=== PATIENT | female | born 1950 | race Caucasian/White ===

== ENCOUNTER 2021-10-16 08:38 | Inpatient (IN) ==
[2021-10-16] MEDS ORDERED: Melatonin 3 MG TABLET PO PRN (11:00)
[2021-10-16] MEDS ORDERED: Naloxone 0.4 MG/ML INJ IVP PRN ×2 (11:00→15:41)
[2021-10-16] MEDS ORDERED: Ondansetron ODT 4 MG TAB.RAPDIS SL PRN (11:00)
[2021-10-16] MEDS ORDERED: *HR* HYDROmorphone PF 0.5 MG/0.5 ML SYRINGE IVP PRN (11:33)
[2021-10-16] MEDS ORDERED: Promethazine 6.25 MG in Water for inj. (sterile) 20 ML IVPB PRN (11:33)
[2021-10-16] MEDS ORDERED: Ondansetron 4 MG/2 ML VIAL IVP PRN (11:33)
[2021-10-16] MEDS ORDERED: Lidocaine -MPF 2% 5 ML VIAL ONE (11:36)
[2021-10-16] MEDS ORDERED: Lidocaine HCL 4 ML Topical Solution (Laryng-O-Jet Kit Sterile Pak) TP ONE (11:36)
[2021-10-16] MEDS ORDERED: Ondansetron 4 MG/2 ML VIAL ONE (11:36)
[2021-10-16] MEDS ORDERED: *HR* Succinylcholine 200 MG/10 ML VIAL IVP ONE (11:36)
[2021-10-16] MEDS ORDERED: *HR* FentaNYL (PF) 100 MCG/2 ML VIAL ONE (11:36)
[2021-10-16] MEDS ORDERED: *HR* Rocuronium Bromide 50 MG/5 ML VIAL ONE (11:36)
[2021-10-16] MEDS ORDERED: *HR* Propofol 200 MG/20 ML VIAL IVP ONE (11:36)
[2021-10-16] MEDS ORDERED: 0.9 % Sodium Chloride 1,000 ML IVC SCH (11:45)
[2021-10-16] MEDS ORDERED: *HR* Midazolam HCl 2 MG/2 ML VIAL ONE (12:42)
[2021-10-16] MEDS ORDERED: EPHEDrine 50 MG/ML VIAL ONE (12:58)
[2021-10-16] MEDS ORDERED: ceFAZolin 2,000 MG in Water for inj. (sterile) 20 ML IVP ONE (13:05)
[2021-10-16] MEDS ORDERED: CeFAZolin Syr 2,000MG/20 ML 2,000 MG/20 ML SYRINGE IVPB ONE (13:15)
[2021-10-16] MEDS ORDERED: carvediloL 6.25 MG TABLET PO ONE (13:54)
[2021-10-16] MEDS ORDERED: Pantoprazole 40 MG VIAL IVP ONE (13:56)
[2021-10-16] MEDS ORDERED: Ipratropium/Albuterol Neb 3 ML IH SCH (13:57)
[2021-10-16] MEDS: Ipratropium/Albuterol Neb 3 ML IH SCH ×3 (16:40→23:36)
[2021-10-16] MEDS: 0.9 % Sodium Chloride 1,000 ML IVC SCH (17:12)
[2021-10-16] MEDS: *HR* Metoprolol 5 MG/5 ML VIAL IVP SCH ×2 (17:13→22:25)
[2021-10-16] MEDS: Piperacillin/Tazobactam 3.375 GM in 0.9 % Sodium Chloride Mini Bag 100 ML IVPB SCH ×2 (17:13→22:28)
[2021-10-16] MEDS: Pantoprazole 40 MG in 0.9 % Sodium Chloride Mini Bag 100 ML IVC SCH ×2 (17:14→22:20)
[2021-10-16] MEDS ORDERED: Pantoprazole 40 MG VIAL IVP SCH (18:00)
[2021-10-16] MEDS: Morphine PCA 30 MG/ 30 ML 30 ML PCA.VIAL IVC PRN (18:10)
[2021-10-16] MEDS ORDERED: *HR* Heparin 5,000 UNIT/ML VIAL SQ SCH (22:00)
[2021-10-16] MEDS: *HR* Heparin 5,000 UNIT/ML VIAL SQ SCH (22:26)
[2021-10-17] MEDS: *HR* Metoprolol 5 MG/5 ML VIAL IVP SCH ×3 (05:30→17:21)
[2021-10-17] MEDS: Pantoprazole 40 MG VIAL IVP SCH ×2 (05:30→17:20)
[2021-10-17] MEDS: *HR* Heparin 5,000 UNIT/ML VIAL SQ SCH ×3 (05:31→22:07)
[2021-10-17] MEDS: 0.9 % Sodium Chloride 1,000 ML IVC SCH ×3 (05:32→19:09)
[2021-10-17] MEDS: Morphine PCA 30 MG/ 30 ML 30 ML PCA.VIAL IVC PRN (10:09)
[2021-10-17] MEDS: Piperacillin/Tazobactam 3.375 GM in 0.9 % Sodium Chloride Mini Bag 100 ML IVPB SCH ×2 (10:15→17:02)
[2021-10-17] MEDS ORDERED: *HR* Dextrose 50 % in Water (Syg) 50 ML SYRINGE IVP ONE (17:13)
[2021-10-17] MEDS ORDERED: D5% in Water 1,000 ML IVC PRN (17:25)
[2021-10-17] MEDS ORDERED: Ipratropium/Albuterol Neb 3 ML IH PRN (17:25)
[2021-10-17] MEDS ORDERED: *HR* Dextrose 50 % in Water (Syg) 50 ML SYRINGE IVP PRN (17:25)
[2021-10-17] MEDS ORDERED: Dextrose 4 GM Chewable Tablets PO PRN ×2 (17:25)
[2021-10-18] MEDS: *HR* Metoprolol 5 MG/5 ML VIAL IVP SCH ×5 (01:21→23:34)
[2021-10-18] MEDS: Piperacillin/Tazobactam 3.375 GM in 0.9 % Sodium Chloride Mini Bag 100 ML IVPB SCH ×4 (01:23→23:31)
[2021-10-18] MEDS: Morphine PCA 30 MG/ 30 ML 30 ML PCA.VIAL IVC PRN (01:47)
[2021-10-18] MEDS: Pantoprazole 40 MG VIAL IVP SCH ×2 (04:23→17:08)
[2021-10-18] MEDS: *HR* Heparin 5,000 UNIT/ML VIAL SQ SCH ×3 (04:24→23:34)
[2021-10-18 07:04] LABS: Basophils % 0.4 %; Eosinophils # 0.1 K/mcL (0.0-0.6); Eosinophils % 1.2 %; Hematocrit 37.5 % (35.3-44.9); Hemoglobin 11.7 g/dL (11.5-15.4); Immature Granulocytes % 1.1 % (0-4); Lymphocytes % 9.6 %; Mean Corpuscular HGB Conc 31.2 g/dL (31.6-35.5); Mean Corpuscular Hemoglobin 29.9 pg (28.0-33.3); Mean Corpuscular Volume 95.9 fL (83.0-100.0); Mean Platelet Volume 10.6 fL (9.4-12.4); Monocytes # 0.9 K/mcL (0.0-1.3); Monocytes % 8.5 %; Neutrophils # 8.3 K/mcL (1.6-8.9); Platelet Count 186 K/mcL (140-400); Red Blood Count 3.91 M/mcL (3.82-4.97); Segmented Neutrophils % 79.2 %; White Blood Count 10.4 K/mcL (4.3-11.1)
[2021-10-18 07:22] LABS: Calcium 8.8 mg/dL (8.6-10.3); Magnesium 1.8 mg/dL (1.6-2.6); Phosphorous 2.2 mg/dL (2.7-4.5); Potassium 4.4 mEq/L (3.5-5.1)
[2021-10-18] MEDS ORDERED: Orphenadrine 60 MG/2 ML VIAL IVP PRN (10:04)
[2021-10-18] MEDS: Acetaminophen IV 1,000 MG/100 ML BAG IVPB SCH ×2 (13:22→17:09)
[2021-10-18] MEDS: 0.9 % Sodium Chloride 1,000 ML IVC SCH ×2 (15:53→19:46)
[2021-10-18] MEDS: Ondansetron 4 MG/2 ML VIAL IVP PRN (19:47)
[2021-10-19] MEDS: Acetaminophen IV 1,000 MG/100 ML BAG IVPB SCH ×2 (00:14→05:20)
[2021-10-19] MEDS: *HR* Heparin 5,000 UNIT/ML VIAL SQ SCH ×3 (05:19→23:14)
[2021-10-19] MEDS: *HR* Metoprolol 5 MG/5 ML VIAL IVP SCH ×4 (05:19→23:14)
[2021-10-19] MEDS: Pantoprazole 40 MG VIAL IVP SCH ×2 (05:21→17:07)
[2021-10-19 06:05] LABS: Basophils % 0.5 %; Eosinophils # 0.2 K/mcL (0.0-0.6); Eosinophils % 2.8 %; Hematocrit 36.5 % (35.3-44.9); Hemoglobin 11.6 g/dL (11.5-15.4); Immature Granulocytes % 0.9 % (0-4); Lymphocytes # 0.9 K/mcL (0.6-4.6); Lymphocytes % 11.8 %; Mean Corpuscular HGB Conc 31.8 g/dL (31.6-35.5); Mean Corpuscular Hemoglobin 30.3 pg (28.0-33.3); Mean Corpuscular Volume 95.3 fL (83.0-100.0); Mean Platelet Volume 10.7 fL (9.4-12.4); Monocytes # 0.6 K/mcL (0.0-1.3); Monocytes % 7.5 %; Neutrophils # 5.8 K/mcL (1.6-8.9); Platelet Count 176 K/mcL (140-400); Red Blood Count 3.83 M/mcL (3.82-4.97); Red Cell Distribution Width 12.3 % (11.5-14.5); Segmented Neutrophils % 76.5 %; White Blood Count 7.6 K/mcL (4.3-11.1)
[2021-10-19 08:51] LABS: BUN/Creatinine Ratio 22 (6-26); Blood Urea Nitrogen 19 mg/dL (8-23); Calcium 8.8 mg/dL (8.6-10.3); Carbon Dioxide 22 mEq/L (23-29); Chloride 105 mEq/L (98-107); Glucose 111 mg/dL (70-105); Osmolality,Calculated 285 (280-300); Potassium 4.3 mEq/L (3.5-5.1); Sodium 136 mEq/L (136-145); eGFR For African Americans > 60 (> 60); eGFR For Non-African Americans > 60 (> 60)
[2021-10-19] MEDS: Piperacillin/Tazobactam 3.375 GM in 0.9 % Sodium Chloride Mini Bag 100 ML IVPB SCH ×3 (08:53→23:08)
[2021-10-19] MEDS: 0.9 % Sodium Chloride 1,000 ML IVC SCH (08:54)
[2021-10-19] MEDS: Ondansetron 4 MG/2 ML VIAL IVP PRN ×2 (08:54→17:08)
[2021-10-19] MEDS ORDERED: Menthol 1 EACH LOZENGE PO PRN (22:35)
[2021-10-20 03:15] LABS: Basophils # 0.1 K/mcL (0.0-0.2); Basophils % 0.7 %; Eosinophils # 0.2 K/mcL (0.0-0.6); Eosinophils % 3.1 %; Hematocrit 34.1 % (35.3-44.9); Hemoglobin 10.9 g/dL (11.5-15.4); Immature Granulocytes % 1.6 % (0-4); Lymphocytes % 15.3 %; Mean Corpuscular Hemoglobin 29.5 pg (28.0-33.3); Mean Corpuscular Volume 92.4 fL (83.0-100.0); Mean Platelet Volume 10.5 fL (9.4-12.4); Monocytes # 0.6 K/mcL (0.0-1.3); Monocytes % 9.5 %; Neutrophils # 4.7 K/mcL (1.6-8.9); Platelet Count 171 K/mcL (140-400); Red Blood Count 3.69 M/mcL (3.82-4.97); Red Cell Distribution Width 12.1 % (11.5-14.5); Segmented Neutrophils % 69.8 %; White Blood Count 6.7 K/mcL (4.3-11.1)
[2021-10-20 03:33] LABS: BUN/Creatinine Ratio 22 (6-26); Blood Urea Nitrogen 18 mg/dL (8-23); Calcium 8.7 mg/dL (8.6-10.3); Carbon Dioxide 28 mEq/L (23-29); Chloride 104 mEq/L (98-107); Glucose 109 mg/dL (70-105); Osmolality,Calculated 290 (280-300); Potassium 3.5 mEq/L (3.5-5.1); Sodium 139 mEq/L (136-145); eGFR For African Americans > 60 (> 60); eGFR For Non-African Americans > 60 (> 60)
[2021-10-20] MEDS: *HR* Heparin 5,000 UNIT/ML VIAL SQ SCH ×2 (05:21→19:13)
[2021-10-20] MEDS: Pantoprazole 40 MG VIAL IVP SCH (05:21)
[2021-10-20] MEDS: *HR* Metoprolol 5 MG/5 ML VIAL IVP SCH (05:22)
[2021-10-20] MEDS: Piperacillin/Tazobactam 3.375 GM in 0.9 % Sodium Chloride Mini Bag 100 ML IVPB SCH ×2 (07:56→19:13)
[2021-10-20 13:24] LABS: Adenovirus Not Detected (Not Detect); Bordetella Pertussis Not Detected (Not Detect); Chlamydophila pneumoniae Not Detected (Not Detect); Coronavirus 229E Not Detected (Not Detect); Coronavirus HKU1 Not Detected (Not Detect); Coronavirus NL63 Not Detected (Not Detect); Coronavirus OC43 Not Detected (Not Detect); Human Metapneumovirus Not Detected (Not Detect); Human Rhinovirus/Enterovirus Not Detected (Not Detect); Influenza A Subtype 2009 H1 Not Detected (Not Detect); Influenza B Not Detected (Not Detect); Mycoplasma pneumoniae Not Detected (Not Detect); Parainfluenza Virus 1 Not Detected (Not Detect); Parainfluenza Virus 2 Not Detected (Not Detect); Parainfluenza Virus 3 Not Detected (Not Detect); Parainfluenza Virus 4 Not Detected (Not Detect); Respiratory Syncytial Virus Not Detected (Not Detect); SARS-CoV-2 Not Detected (Not Detect)
[2021-10-20] MEDS ORDERED: carvediloL 6.25 MG TABLET PO SCH (17:00)
[2021-10-20 19:49] VITALS: BP 197/120; PULSE 91; TEMP 98.5; O2SAT 93
[2021-10-20] MEDS ORDERED: carvediloL 6.25 MG TABLET PO ONE (20:00)
[2021-10-21] MEDS ORDERED: Aspirin Enteric Coated 81 MG Tablet PO SCH (09:00)
[2021-10-21] MEDS ORDERED: Spironolactone 25 MG TABLET PO SCH (09:00)
[2021-10-21] MEDS ORDERED: hydroCHLOROthiazide 25 MG TABLET PO SCH (09:00)
[2021-10-21] MEDS ORDERED: carvediloL 6.25 MG TABLET PO ONE (19:53)
== END 2021-10-20 20:02 | DRG 328 ==
LOC: 3ANU
PROVIDERS: ADMIT Internal Medicine; ATTEND Internal Medicine